=== PATIENT | male | born 1975 | race Caucasian/White ===

== ENCOUNTER → 2017-08-16 | Outpatient (CLI) | payer OTHER ==
--- NOTE | 2017-08-17 08:56 | MR ---
MRI CERVICAL SPINE: CLINICAL HISTORY: Cervicalgia, cervical disc degeneration C5-C6 level, and cervical radiculopathy all per order. Neck pain causing pain or weakness into both fingers for 10+ years per patient. TECHNIQUE: Multiplanar, multisequence imaging of the cervical spine is performed without IV contrast. COMPARISON: None. FINDINGS: Sagittal images of the cervical spine show the craniocervical junction to appear within nor mal limits. The cervical and upper thoracic spinal cord is normal in signal. There is focal spinal c anal narrowing with perhaps mild AP cord diameter narrowing at C5-C6 level on sagittal image 7. There is grade 1 retrolisthesis of C5 on C6 and mild to moderate disc space narrowing with mild anterior s purring at this level. There is posterior disc herniation and spurring noted at this level on sagitta l images. There is additional less prominent mild disc space narrowing with posterior disc herniation C6-C7 level on sagittal images. The vertebral body and intravertebral disk heights otherwise are nor mal. The bone marrow signal intensity is within normal limits. No significant additional spurring is seen. Axial images show the C2-C3 and C3-C4 levels to appear within normal limits. Axial images at C4-C5 level show left-sided uncovertebral facet degenerative changes causing mild lef t-sided neural foraminal narrowing. Right-sided neural foramen is patent. Spinal canal is preserved. Axial images at C5-C6 level show broad-based posterior disc protrusion effacing anterior thecal sac u p to ventral surface of spinal cord with marginal spurring causing advanced right-sided neural forami nal narrowing. There is moderate to advanced left-sided neural foraminal narrowing seen. There is leann e generalized AP cord diameter narrowing seen best axial images 23 through 25 without definitive abno rmal signal Axial images at C6-C7 level show broad-based posterior disc protrusion and marginal spurring with leann e effacement anterior thecal sac, there is moderate left greater than right neural foraminal narrowin g at this level identified. Axial images at C7-T1 level are felt within normal limits. IMPRESSION: Multilevel degenerative changes in the mid to lower cervical spine as detailed above, att ention to C5-C6 level where most prominent findings are seen as there is spondylolisthesis, spurring, and disc herniation contributing to significant anterior spinal canal effacement and mild cord steno sis and significant right greater than left neural foraminal narrowing.
== END | disposition home or self-care (01) ==
LOC: RADMRIMAIN 12:12
PROVIDERS: ATTEND Orthopaedic Surgery Orthopaedic Surgery of the Spine
DX: M48.02 Spinal stenosis, cervical region (principal); M99.71 Connective tissue and disc stenosis of intervertebral foramina of cervical region; M47.22 Other spondylosis with radiculopathy, cervical region; M43.12 Spondylolisthesis, cervical region; M46.02 Spinal enthesopathy, cervical region; M50.122 Cervical disc disorder at C5-C6 level with radiculopathy; M54.5 Low back pain
CPT/HCPCS: 72141

== ENCOUNTER 2017-09-26 11:03 | Observation (INO) | payer OTHER ==
[2017-09-20 15:38] VITALS: BMI 29.5
[~2017-09-26 11:03] MED LIST: BACITRACIN 50,000 UNIT, POLYMYXIN B 500,000 UNIT in SODIUM CHLORIDE 0.9% IRRIGATIO 1,00... IRRIGATION ONE; HYDROmorphone 0.5 MG/0.5 ML SYRINGE IVP PRN; MORPHINE SULFATE 4 MG/ML SYRINGE IV PRN; ceFAZolin IN SWFI 2 GM/20 ML SYRINGE IVP ONE
[2017-09-26] MEDS: LACTATED RINGERS 1,000 ML IV SCH ×3 (12:09→23:35)
[2017-09-26] MEDS ORDERED: LIDOCAINE 1% 20 ML VIAL (10MG/ML) FOR IV START INTRADERMA ONE (12:10)
[2017-09-26] MEDS ORDERED: LIDOCAINE 1% INJ 10MG/ML (20 ML MDV) ONE (13:30)
[2017-09-26] MEDS ORDERED: SUCCINYLCHOLINE CHLORIDE 100 MG/5 ML SYR IV ONE (13:30)
[2017-09-26] MEDS ORDERED: MIDAZOLAM 2 MG/2 ML VIAL ONE (13:30)
[2017-09-26] MEDS ORDERED: PROPOFOL 10 MG/ML 20 ML VIAL IV ONE (13:30)
[2017-09-26] MEDS ORDERED: fentaNYL (PF) 50 MCG/ML 2 ML AMP ONE (13:30)
[2017-09-26] MEDS ORDERED: BUPIVACAINE (PF) 0.5% 30 ML VIAL SQ ONE (14:17)
[2017-09-26] MEDS ORDERED: GELATIN SPONGE,ABSORB (LARGE) 1 EACH SPONGE MISCELLANE ONE (14:17)
[2017-09-26] MEDS ORDERED: THROMBIN (BOVINE) 5,000 UNIT VIAL MISCELLANE ONE (14:17)
[2017-09-26] MEDS ORDERED: LIDOCAINE 0.5% (PF) 5 MG/ML (50 ML SDV) SQ ONE (14:19)
--- NOTE | 2017-09-26 14:47 | XR ---
EXAMINATION TYPE: XR cervical spine 1V DATE OF EXAM: 09/26/2017 COMPARISON: MRI cervical spine 08-16-2017. HISTORY: Neck Pain. TECHNIQUE: Single cross table lateral view of C-Spine is obtained intraoperatively. FINDINGS: Exam is for surgical planning and upper diagnostic purposes. Metallic pointer is noted at C 6-C7 disc space level. IMPRESSION: As above.
--- NOTE | 2017-09-26 15:12 | P.OP ---
Date of Procedure: 09/26/17 Preoperative Diagnosis: Herniated nuclear stenosis C5 6 Degenerative disc disease with osteophytic spurring C5 6 Neck pain and upper extremity radiculopathy with weakness Postoperative Diagnosis: Same Anesthesia: GETA Pathology: none sent Condition: stable Disposition: PACU Description of Procedure: BRIEF OPERATIVE NOTE Preoperative Diagnosis: Herniated nucleus pulposis C5 6, cervical stenosis with degenerative disc disease and osteophytic spurring C5 6, neck pain and upper extremity radiculopathy with weakness Postoperative Diagnosis: Same Procedure: Anterior cervical decompression with discectomy and fusion C5 6 Placement of interbody graft C5 6 Application of anterior cervical plate C5 6 Surgeon: Dr. Goddard Unhairing Machine Operator: Jurgen BROWN who is present throughout the entire the case persistence during positioning, dissection, exposure, visualization, and all crucial elements of the case as well as closure. Anesthesia: General anesthesia Estimated blood loss: Approximately 50 mL Complications: None apparent Components implanted: K2M [place] anterior cervical plate system with Vikos interbody allograft bone graft Disposition: To recovery room in good stable condition. OPERATIVE INDICATIONS The patient has had long-standing issues in their neck and upper extremities. He was having significant worsening of his neck and upper extremity symptoms and was demonstrated weakness in his left upper extremity as well. His symptoms correlate well with his imaging findings which was showed severe disc degeneration with disc herniation stenosis and osteophyte spurring at C5 6. The patient has been through conservative treatment. He is not having any prolonged benefit despite aggressive conservative treatment We discussed various treatment options including surgery, and the patient wishes to proceed with surgery We discussed the risk, patient's alternatives and benefits of surgery including but not limited to, risk of bleeding risk of infection, risk of need for further surgery, risk of decreased, loss of motion, muscle function , malunion nonunion, hardware failure, nerve damage, paralysis, heart attack, and . OPERATIVE SUMMARY After discussing all the risks, patient alternatives and benefits at length, the patient elected to proceed with surgical intervention, signed informed consent, and presented for their procedure. The patient was seen and examined in the preoperative holding area and the surgical site was marked. The patient was given antibiotics and brought to the operating room. The patient was positioned on the operating room table in a supine position being careful to pad any bony prominences and pressure points. The patient was sedated and intubated by anesthesia in standard fashion. Once the airway and C- spine were stabilized the patient's arms were padded and tucked at her side, with her shoulders gently taped. The head was placed in a donut pad with the neck in good neutral alignment and position. We were careful to maintain the patient's cervical spine and good neutral alignment and position throughout. The patient was prepped and draped in a normal standard fashion. An appropriate timeout and keystone protocol performed. We were able to proceed with the surgery. The local wound area was infiltrated with local anesthetic. An incision was made transversely approximately 2-1/2 cm over the appropriate levels at C5 6. Dissection was taken down subcutaneously to the level of the platysma which was split in line with its fibers. Dissection was taken with a carotid approach, with the trachea and esophagus medial and the carotid sheath laterally. We dissected down to the anterior surface of the vertebral bodies. Intraoperative x-ray was taken which showed a marker at the C6 7 level. I was then able to expose definitively the intermediate level cephalad to that at C5 6. I was able to confirm the level of C5 6. With the appropriate level positively confirmed, we were able to proceed with discectomy at the appropriate levels of C5 6. All of the operative levels were exposed appropriately. The patient had all their twitches back, and there was no evidence of recurrent laryngeal issue. The wound was copiously irrigated and suctioned dry as had been done periodically throughout the case. At the appropriate level/levels of C5 6, I established an annulotomy with an 11 blade scalpel. A discectomy was performed with a combination of pituitary rongeurs, curettes, a high-speed bur, and Kerrison rongeurs. The posterior longitudinal ligament was taken down as were any posterior osteophytes. There were large posterior osteophytes as well as extruded disc herniation. I was able to remove the disc herniation and remove the large posterior osteophytes get excellent central and bilateral foraminal decompression. This gave good central and bilateral foraminal decompression. There is no evidence of any dural tear or leak. The endplates were prepared with a high-speed bur. With the endplates in good parallel position, I was able to size for the appropriate size interbody graft. The wound was irrigated and suctioned dry the graft was prepared and malleted into position. It had good alignment and position with the anterior surface flush with the anterior surface of the vertebral bodies of C5 6. With the grafts intact, I was able to measure and contour and appropriate sized plate. The plate was positioned at the midline over the appropriate levels of C5 6. Screw holes were established with a hand drill and drill guide. Screws were placed in good alignment and position with excellent bony purchase. They were seated under the locking device. The construct was checked and found to be stable. Intraoperative x-ray was taken which showed good alignment and position of the implants at the appropriate levels. There was no evidence of any dural tear or leak. Good hemostasis was maintained. The wound was copiously irrigated and suctioned dry as had been done periodically throughout the case. The platysma was closed with absorbable suture. The subcutaneous tissue was closed. The subcuticular tissue was closed with absorbable suture. The wound was cleaned and dried and dressed appropriately. A soft cervical collar was placed appropriately. The patient was woken up by anesthesia, extubated, transferred back gently to their hospital bed and brought to the recovery room in good stable condition. The patient will be admitted to the hospital for appropriate postoperative care , medical management and monitoring. We will continue to follow them closely about the postoperative course.
--- NOTE | 2017-09-26 15:13 | XR ---
EXAMINATION TYPE: XR cervical spine 1V DATE OF EXAM: 09/26/2017 COMPARISON: Cervical spine x-ray earlier today. HISTORY: Neck pain and surgery. TECHNIQUE: Single crosstable lateral view of cervical spine is obtained intraoperatively. FINDINGS: Single crosstable lateral view shows no anterior fusion plate and anterior placed artificia l disc material C5-C6 level with stable and satisfactory alignment. There is partial visualization of endotracheal tube. IMPRESSION: As above.
[2017-09-26] MEDS ORDERED: BENZOCAINE/MENTHOL LOZENG 1 EACH LOZENGE MUCOUS MEM PRN (15:15)
[2017-09-26] MEDS ORDERED: MORPHINE SULFATE/PF 10MG/10ML VL IVP PRN (15:15)
[2017-09-26] MEDS ORDERED: ONDANSETRON 4 MG/2 ML VIAL IVP PRN (15:16)
[2017-09-26] MEDS ORDERED: HYDROcodone/APAP 5-325MG 1 EACH TAB PO PRN (15:16)
[2017-09-26] MEDS: MORPHINE SULFATE 10 MG/ML SYRINGE IVP ONE ×3 (15:23→15:48)
[2017-09-26] MEDS ORDERED: SODIUM CHLORIDE 0.9% 1,000 ML IV ONE ×2 (15:35)
[2017-09-26] MEDS: DIAZEPAM 5 MG TAB PO PRN ×2 (15:57→21:10)
[2017-09-26] MEDS: fentaNYL (PF) 50 MCG/ML 2 ML AMP IVP ONE ×2 (16:07→16:13)
[2017-09-26] MEDS ORDERED: MORPHINE SULFATE 4 MG/ML SYRINGE IVP ONE (16:48)
[2017-09-26] MEDS: SODIUM CHLORIDE 0.9% 1,000 ML IV SCH (17:32)
[2017-09-26] MEDS: HYDROcodone/APAP 5-325MG 1 EACH TAB PO PRN (17:53)
[2017-09-26] MEDS: MORPHINE SULFATE/PF 10MG/10ML VL IVP PRN (19:20)
[2017-09-26] MEDS: ceFAZolin IN SWFI 2 GM/20 ML SYRINGE IVP SCH (21:10)
[2017-09-27] MEDS: MORPHINE SULFATE/PF 10MG/10ML VL IVP PRN ×2 (01:19→08:57)
[2017-09-27] MEDS: SODIUM CHLORIDE 0.9% 1,000 ML IV SCH (06:00)
[2017-09-27] MEDS: HYDROcodone/APAP 5-325MG 1 EACH TAB PO PRN (06:06)
[2017-09-27] MEDS: ceFAZolin IN SWFI 2 GM/20 ML SYRINGE IVP SCH (06:06)
[2017-09-27 08:38] VITALS: BP 130/80; PULSE 88; RESP 18; TEMP 98
[2017-09-27] MEDS ORDERED: SENNOSIDES-DOCUSATE SODIUM 1 EACH TAB PO SCH (09:00)
[2017-09-27] MEDS ORDERED: HYDROcodone/APAP 5-325MG 1 EACH TAB PO PRN (09:15)
[2017-09-27] MEDS: DIAZEPAM 5 MG TAB PO PRN (12:12)
--- NOTE | 2017-09-27 12:34 | P.DS ---
Providers Date of admission: 09/27/17 05:43 Expected date of discharge: 09/27/17 Attending physician: Shakila Goddard Primary care physician: Mathew English - Discharge Diagnosis(es) (1) Herniated nucleus pulposus, C5-6 Current Visit: Yes Status: Acute (2) Degenerative disc disease, cervical Current Visit: Yes Status: Acute (3) Cervical stenosis of spine Current Visit: Yes Status: Acute (4) Cervicalgia Current Visit: Yes Status: Acute (5) Radiculopathy affecting upper extremity Current Visit: Yes Status: Acute (6) Upper extremity weakness Current Visit: Yes Status: Acute (7) Myalgia Current Visit: Yes Status: Acute (8) Status post cervical spinal fusion Current Visit: Yes Status: Acute Hospital Course: This is a pleasant 42-year-old male who presented with C5-6 herniated nucleus pulposus, degenerative disc disease with osteophytic spurring, spinal canal stenosis, cervical pain, and upper extremity radiculopathy with weakness who failed outpatient conservative therapy. He was admitted for an anterior cervical decompression and fusion at C5-6. Postsurgically he was having some difficulty with pain control last night but states his cervical pain has significantly improved. His upper extremity radiculopathy symptoms have had significant improvement postsurgically. He has been eating and voiding without difficulty. He states he feels his cervical pain is adequate controlled. He states at the bedside he is currently experiencing a significant headache. He feels like the headache is just over the top of his head. He feels it may be more muscular in nature. He denies seeing auras or changes in his vision. He does feel if his headache is able to improve he'll be ready for discharge home today. He was just given Valium. He is also waiting for his lunch to arrive. We discussed if his headache is able to improve throughout the day, he is cleared for discharge home from an orthopedic spine standpoint. The patient tolerated the procedure well and did well postoperatively in regards to his cervical spine. Condition on day of discharge stable. Patient will be discharged home. Patient was cleared preoperatively for surgery by Dr. English. Patient currently denies any nausea, vomiting, fever, or chills. Patient may shower Tegaderm dressing intact. Patient may remove Tegaderm dressing in 3 days and shower without a dressing at that time. Patient should keep Steri-Strips intact and allow them to fall off naturally. Patient should refrain from driving until at least after their first follow-up appointment in the office. Patient should avoid excessive neck flexion, extension, rotation, and lateral sidebending; no overhead lifting; no lifting greater than 10 pounds. Patient is given a prescription for [place] 5 mg/325 mg 1 tablet every 6 hours as needed for pain dispense #90 at discharge. He should avoid anti- inflammatories over the next 6 weeks postoperatively. He will also be given a prescription for Flexeril 10 mg which he may take 1 tab every 8 hours as needed for muscle spasms, dispense #90. Physical Exam on day of discharge: Patient is awake, alert, and oriented 3 Vital signs stable Good chest excursion with deep inspiration and expiration Abdomen soft nontender No signs or symptoms of DVT; no calf pain Full range of motion of the cervical spine with adequate flexion, extension, and bilateral rotation No significant pain with palpation over the posterior cervical spine or over the trapezius bilaterally Cable Supervisor strength, thumb strength, interosseous strength, biceps strength, triceps strength, and shoulder strength positive sustained bilaterally Soft cervical collar not currently intact Incision is dry and intact; no erythema, purulence, or signs of infection 2 small areas of dried blood over the dressing without active drainage Tegaderm dressing and non-stick Telfa intact Procedures: C5-6 anterior cervical decompression and fusion Patient Condition at Discharge: Stable Plan - Discharge Summary Discharge Rx Participant: No New Discharge Prescriptions: New HYDROcodone/APAP 5-325MG [[place] 5] 1 each PO Q6HR PRN #90 tab PRN Reason: Pain Cyclobenzaprine [Flexeril] 10 mg PO TID PRN #90 tab PRN Reason: Muscle Spasm No Action Naproxen Sodium [Aleve] 440 - 660 mg PO Q12HR Hydrocodone/Acetaminophen [Hydrocodon-Acetaminophen 5-325] 1 tab PO Q6H PRN PRN Reason: Pain Discharge Medication List Hydrocodone/Acetaminophen [Hydrocodon-Acetaminophen 5-325] 1 tab PO Q6H PRN [History] Naproxen Sodium [Aleve] 440 - 660 mg PO Q12HR 09/20/17 [History] HYDROcodone/APAP 5-325MG [[place] 5] 1 each PO Q6HR PRN #90 tab 09/26/17 [Rx] Cyclobenzaprine [Flexeril] 10 mg PO TID PRN #90 tab 09/27/17 [Rx] Follow up Appointment(s)/Referral(s): Shakila Goddard DO [Doctor of Osteopathic Medicine] - 10/10/17 9:30 am Patient Instructions/Handouts: *Surgery [facility] - ([place]) Cervical Surgery Discharge Instructions, Hydrocodone/Acetaminophen (By mouth), Surgical Site Infections (DC) Activity/Diet/Wound Care/Special Instructions: 1. Keep site clean. May shower with waterproof Tegaderm intact. 2. Do not soak in a tub. 3. On Tuesday, patient may remove the Tegaderm dressing and then may leave area uncovered. 4. Avoid heavy or rigorous activity. 5. May ambulate to tolerance. 6. No repetitive bending, twisting or lifting 7. Patient may wear soft cervical collar for comfort support as needed 8. Take medications as prescribed. Discharge Disposition: HOME SELF-CARE
== END 2017-09-27 14:10 | disposition home or self-care (01) ==
LOC: OR 11:03 → 5MS5E 15:10 → OR 09-27 05:43
PROVIDERS: ADMIT Orthopaedic Surgery Orthopaedic Surgery of the Spine; ATTEND Orthopaedic Surgery Orthopaedic Surgery of the Spine
DX: M50.122 Cervical disc disorder at C5-C6 level with radiculopathy (principal); M48.02 Spinal stenosis, cervical region; M25.78 Osteophyte, vertebrae; R53.1 Weakness; M79.1 Myalgia; R51 Headache; M51.16 Intervertebral disc disorders with radiculopathy, lumbar region; Z79.1 Long term (current) use of non-steroidal anti-inflammatories (NSAID); Z82.49 Family history of ischemic heart disease and other diseases of the circulatory system
CPT/HCPCS: 22551; 20931; 86900; 86901; 86850; 72020; 36415; G0378; C1713; C1762; J2250; J2270 ×4; J2001; J3010; J0330; J2704; J0690 ×2

== ENCOUNTER → 2020-11-03 | Outpatient (CLI) | payer BC ==
--- NOTE | 2020-11-04 07:43 | ECHOF ---
Referral Reason:R00.2 PALPITATIONS MEASUREMENTS -------- HEIGHT: 182.9 cm WEIGHT: 94.3 kg BP: RVIDd: 3.1 cm (< 3.3) IVSd: 0.9 cm (0.6 - 1.1) LVIDd: 4.8 cm (3.9 - 5.3) LVPWd: 1.1 cm (0.6 - 1.1) IVSs: 1.5 cm LVIDs: 3.3 cm LVPWs: 1.4 cm LAESV Index (A-L): 15.12 ml/m Ao Diam: 3.4 cm (2.0 - 3.7) AV Cusp: 2.1 cm (1.5 - 2.6) LA Diam: 3.9 cm (2.7 - 3.8) MV EXCURSION: 18.872 mm (> 18.000) MV EF SLOPE: 110 mm/s (70 - 150) EPSS: 0.5 cm RAP: 5.00 mmHg RVSP: 13.49 mmHg FINDINGS -------- Sinus rhythm. This was a technically adequate study. LV size, wall thickness and systolic function are normal, with an EF greater than 55%. The left gino tricular size is normal. The right ventricle is normal in size. Normal LA size by volume 22+/-6 ml/m2. The right atrial size is normal. The aortic valve is trileaflet, and appears structurally normal. No aortic stenosis or regurgitation. The mitral valve is normal. Mild mitral regurgitation is present. The tricuspid valve appears structurally normal. Mild tricuspid regurgitation present. Right vent ricular systolic pressure is normal at < 35 mmHg. There is no pulmonic regurgitation present. The aortic root size is normal. There is no pericardial effusion. CONCLUSIONS -------- 1. LV size, wall thickness and systolic function are normal, with an EF greater than 55%. 2. Normal LA size by volume 22+/-6 ml/m2. 3. The aortic valve is trileaflet, and appears structurally normal. No aortic stenosis or regurgitati on. 4. Mild mitral regurgitation is present. 5. Mild tricuspid regurgitation present. 6. There is no pericardial effusion. CONSERVATION COORDINATOR: Emili Lane RDCS
== END | disposition home or self-care (01) ==
LOC: RADECHMAIN 12:13
PROVIDERS: ATTEND Family Medicine
DX: I08.1 Rheumatic disorders of both mitral and tricuspid valves (principal)
CPT/HCPCS: 93306

== ENCOUNTER → 2020-11-06 | Outpatient (CLI) | payer BC ==
--- NOTE | 2020-11-07 03:57 | MR ---
EXAMINATION TYPE: MR brain wo/w con DATE OF EXAM: 11/06/2020 COMPARISON: None HISTORY: Dizziness and faint feeling, 2 weeks ago. CONTRAST: Standard multiplanar, multisequence MRI departmental protocol utilizing 10 mL intravenous Gadavist ga dolinium contrast. Ventricles have normal size. There is no mass effect nor midline shift. Diffusion images show no evid ence of an acute infarct. The brainstem is intact. The farah-white matter structures have fairly carlos l signal pattern. There is no evidence of cerebral edema. There is normal enhancement of the venous s inuses. There is no pathologic enhancement. Corpus callosum appears normal. Sella turcica is normal. There is no evidence of orbital mass. There is mild mucosal thickening in the anterior ethmoid sinuse s. IMPRESSION: Negative MR scan of the brain. No posterior fossa abnormality. Mild sinusitis.
== END | disposition home or self-care (01) ==
LOC: RADMRIMAIN 17:05
PROVIDERS: ATTEND Nurse Practitioner Adult Health
DX: R42 Dizziness and giddiness (principal)
CPT/HCPCS: 70553; A9585